=== PATIENT | female | born 1980 | race Caucasian/White ===

== ENCOUNTER 2021-02-06 06:20 | Observation (INO) | payer OTHER ==
[~2021-02-06] VITALS: Ht 167.6 cm; Wt 72.6 kg
[~2021-02-06 06:20] MED LIST: IBUPROFEN800 MG PO; MACRODANTIN100 MG PO; PYRIDIUM200 MG PO; ZOFRAN 4 MG TAB4 MG PO
[2021-02-06 10:00] LABS: HEMOGLOBIN 13.4 gm/dl (12.3-15.3); RED BLOOD COUNT 4.23 M/UL (4.00-5.10); WHITE BLOOD COUNT 8.5 K/UL (4.5-11.0)
[2021-02-06 10:22] LABS: BUN/CREATININE RATIO 19 (0-10)
[2021-02-06] MEDS ORDERED: CEPHALEXIN500 M1 PO (13:32)
[2021-02-06] MEDS ORDERED: PREDNISONE5 M1 PO (13:33)
[2021-02-07 03:03] LABS: HEMOGLOBIN 12.7 gm/dl (12.3-15.3); RED BLOOD COUNT 4.02 M/UL (4.00-5.10); WHITE BLOOD COUNT 9.1 K/UL (4.5-11.0)
[2021-02-07 03:22] LABS: BUN/CREATININE RATIO 16 (0-10)
[2021-02-08 04:52] LABS: BUN/CREATININE RATIO 15 (0-10)
[2021-02-08 07:11] LABS: HBSAG SCREEN Negative (Negative); HEP A AB, IGM Negative (Negative); HEP B CORE AB, IGM Negative (Negative); HEP C VIRUS AB >11.0 (0.0-0.9)
[2021-02-08] MEDS ORDERED: BACTRIM DS TAB1 EACH PO (09:17)
[2021-02-08] MEDS ORDERED: VALACYCLOVIR500 MG PO (10:04)
== END 2021-02-08 12:42 | disposition home or self-care (01) ==
LOC: ER1 06:20 → MED SURG 4 13:07 → CDU 13:07 → MED SURG 4 14:59
PROVIDERS: Family Medicine; Internal Medicine; Physician Assistant; ADMIT Internal Medicine
DX: K13.0 Diseases of lips (principal); B95.62 Methicillin resistant Staphylococcus aureus infection as the cause of diseases classified elsewhere; E87.6 Hypokalemia; F17.210 Nicotine dependence, cigarettes, uncomplicated; Z20.822 Contact with and (suspected) exposure to COVID-19; Z86.19 Personal history of other infectious and parasitic diseases
CPT/HCPCS: 36415; 70487; 80048; 80074; 80202; 80307; 84703; 85025; 86694; 87070; 87077; 87081; 87186; 87205; 96374; 96375; 96376; 99285; G0378; J0696; J1885; J2543; J3370; J7030; J7070; Q9967; U0002

== ENCOUNTER 2022-01-04 01:52 | Emergency (ER) | payer OTHER ==
[~2022-01-04 01:52] MED LIST changes: +BACTRIM DS TAB1 EACH PO; +CEPHALEXIN500 M1 PO; +PREDNISONE5 M1 PO; +VALACYCLOVIR500 MG PO
== END 2022-01-04 03:20 | disposition home or self-care (01) ==
LOC: ER1 01:52
DX: R10.9 Unspecified abdominal pain (principal); R11.2 Nausea with vomiting, unspecified; F17.200 Nicotine dependence, unspecified, uncomplicated
CPT/HCPCS: 99283